=== PATIENT | female | born 1985 | race Caucasian/White ===

== ENCOUNTER 2018-09-20 01:54 | Emergency (ER) | payer OTHER ==
[~2018-09-20] VITALS: Ht 157.5 cm; Wt 54.4 kg
== END 2018-09-20 05:24 | disposition home or self-care (01) ==
LOC: ER 01:54
DX: K52.9 Noninfective gastroenteritis and colitis, unspecified (principal)

== ENCOUNTER 2023-01-30 00:32 | Emergency (ER) | payer OTHER ==
[~2023-01-30] VITALS: Ht 157.5 cm; Wt 65.8 kg
[2023-01-30 02:26] LABS: URINE APPEARANCE Clear; URINE BILIRRUBIN Negative (NEGATIVE); URINE BLOOD Negative; URINE COLOR Yellow; URINE GLUCOSE Negative (NEGATIVE); URINE LEUKOCYTE Negative; URINE NITRATE Negative; URINE PROTEIN Negative (NEGATIVE); URINE UROBILINOGEN 0.2 E.U./dl
[2023-01-30 02:29] LABS: URINE BACTERIA 1010.5 uL (0.0-1933); URINE EPITHELIAL CELLS 12.8 uL (0.0-38.8); URINE RBC 6.3 uL (0.0-20.8); URINE WBC 19.4 uL (0.0-23.2)
[2023-01-30 03:05] LABS: HEMATOCRIT 36.3 % (36.0-45.00); HEMOGLOBIN 12.4 g/dL (12.0-15.00); MEAN CELL VOLUME 82.2 fL (80.00-100.00); PLATELET COUNT 331 K/uL (150-450); RED BLOOD COUNT 4.42 M/uL (4.00-6.00); RED CELL DISTRIBUTION WIDTH 13.9 % (11.5-14.5)
[2023-01-30 03:10] LABS: CALCIUM 8.9 mg/dL (8.5-10.1); GFR 135.69; POTASSIUM 3.63 mEq/L (3.5-5.1)
[2023-01-30 03:18] LABS: CREATININE SERUM 0.51 mg/dL (0.55-1.02)
== END 2023-01-30 06:44 | disposition home or self-care (01) ==
LOC: ER 00:32
DX: K52.89 Other specified noninfective gastroenteritis and colitis (principal); R53.81 Other malaise; Z20.822 Contact with and (suspected) exposure to COVID-19

== ENCOUNTER 2023-03-20 09:03 | Outpatient (CLI) | payer OTHER | END 2023-03-20 10:35 | disposition home or self-care (01) | LOC: NST 09:03 | PROVIDERS: ATTEND Obstetrics & Gynecology Maternal & Fetal Medicine | DX: Z34.83 Encounter for supervision of other normal pregnancy, third trimester (principal) ==

== ENCOUNTER 2023-05-07 10:52 | Outpatient (CLI) | payer OTHER | END 2023-05-07 11:25 | disposition home or self-care (01) | LOC: NST 10:52 | PROVIDERS: ATTEND Obstetrics & Gynecology | DX: Z34.83 Encounter for supervision of other normal pregnancy, third trimester (principal) ==

== ENCOUNTER 2023-05-08 09:19 | Outpatient (CLI) | payer OTHER | END 2023-05-08 10:08 | disposition home or self-care (01) | LOC: NST 09:19 | PROVIDERS: ATTEND Obstetrics & Gynecology | DX: Z34.83 Encounter for supervision of other normal pregnancy, third trimester (principal); Z3A.36 36 weeks gestation of pregnancy ==

== ENCOUNTER 2023-05-10 14:30 | Inpatient (IN) | payer OTHER ==
[~2023-05-10] VITALS: Ht 157.5 cm; Wt 3.6 kg
[2023-05-22] MEDS ORDERED: PRENATAL TABLE1 EAC1 PO (19:14)
[2023-05-22] MEDS ORDERED: RINGERS SOLUTION,LACTATED 1,000 ML IV SCH (19:45)
[2023-05-22 19:54] LABS: HEMATOCRIT 38.3 % (36.0-45.00); HEMOGLOBIN 13.2 g/dL (12.0-15.00); MEAN CORPUSCULAR HEMOGLOBIN 28.6 pg (27.00-32.0); MEAN CORPUSCULAR HGB CONC 34.5 g/dl (32.0-36.0); PLATELET COUNT 258 K/uL (150-450); RED BLOOD COUNT 4.61 M/uL (4.00-6.00); RED CELL DISTRIBUTION WIDTH 14.7 % (11.5-14.5)
[2023-05-22 19:55] LABS: URINE APPEARANCE Clear; URINE BILIRRUBIN Negative (NEGATIVE); URINE BLOOD Negative; URINE COLOR Yellow; URINE GLUCOSE Negative (NEGATIVE); URINE LEUKOCYTE Moderate; URINE NITRATE Negative; URINE PROTEIN Negative (NEGATIVE); URINE UROBILINOGEN 0.2 E.U./dl
[2023-05-22 19:59] LABS: URINE BACTERIA 2479.5 uL (0.0-1933); URINE EPITHELIAL CELLS 29.2 uL (0.0-38.8); URINE WBC 88.2 uL (0.0-23.2)
[2023-05-22 20:14] LABS: INR < 0.93; PARTIAL THROMBOPLASTIN TIME 25.1 SECONDS (22.0-34.0); PROTHROMBIN TIME 9.4 SECONDS (9.0-11.5)
[2023-05-22 20:15] LABS: URINE RBC 1.1 uL (0.0-20.8)
[2023-05-22 20:21] LABS: ALBUMIN 3.3 gm/dL (3.4-5.0); BILIRUBIN TOTAL 0.29 mg/dL (0.3-1.2); CALCIUM 9.7 mg/dL (8.5-10.1); CREATININE SERUM 0.52 mg/dL (0.55-1.02); GFR 132.69; GLOBULINA 3.2 G/DL (2.4-3.5); POTASSIUM 4.21 mEq/L (3.5-5.1); TOTAL PROTEIN 6.5 gm/dL (6.4-8.2)
[2023-05-23] MEDS ORDERED: CEFAZOLIN SODIUM 1,000 MG VIAL IV ONE (09:45)
[2023-05-23] MEDS ORDERED: CITRIC ACID/SODIUM CITRATE 30 ML BLIST.PACK PO ONE (09:45)
[2023-05-23] MEDS ORDERED: OXYTOCIN 10 UNITS/ML VIAL ONE ×3 (12:00→15:17)
[2023-05-23] MEDS ORDERED: ERYTHROMYCIN BASE 1 GM TUBE OP ONE (12:00)
[2023-05-23] MEDS ORDERED: MORPHINE SULFATE 4 MG/ML CARTRIDGE IV PRN (13:45)
[2023-05-23] MEDS ORDERED: RINGERS SOLUTION,LACTATED 1,000 ML IV SCH (13:45)
[2023-05-23] MEDS ORDERED: ONDANSETRON HCL 2 MG/ML VIAL IV PRN (13:45)
[2023-05-23] MEDS ORDERED: OXYTOCIN 1,000 ML IV SCH (13:45)
[2023-05-23] MEDS ORDERED: KETOROLAC TROMETHAMINE 30 MG VIAL ONE (16:02)
[2023-05-23] MEDS ORDERED: GABAPENTIN 300 MG CAPSULE PO SCH (17:00)
[2023-05-23] MEDS ORDERED: KETOROLAC TROMETHAMINE 30 MG VIAL IV SCH (18:00)
[2023-05-24] MEDS ORDERED: SIMETHICONE 125 MG CAPSULE PO SCH (01:00)
[2023-05-24] MEDS ORDERED: ACETAMINOPHEN 500 MG GEL..CAP PO SCH (05:00)
[2023-05-24] MEDS ORDERED: KETOROLAC TROMETHAMINE 10 MG TABLET PO PRN (06:00)
[2023-05-24 07:03] LABS: HEMATOCRIT 25.5 % (36.0-45.00); MEAN CELL VOLUME 83.3 fL (80.00-100.00); MEAN CORPUSCULAR HGB CONC 35.7 g/dl (32.0-36.0); PLATELET COUNT 223 K/uL (150-450); RED BLOOD COUNT 3.07 M/uL (4.00-6.00); RED CELL DISTRIBUTION WIDTH 13.8 % (11.5-14.5)
[2023-05-24 07:22] LABS: MEAN CORPUSCULAR HEMOGLOBIN 29.6 pg (27.00-32.0)
[2023-05-24 07:23] LABS: HEMOGLOBIN 9.1 g/dL (12.0-15.00)
[2023-05-24] MEDS ORDERED: OxyCODONE HCL/APAP UD (PERCOCET) PO SCH (09:00)
[2023-05-24] MEDS ORDERED: DOCUSATE CALCIUM 240 MG CAPSULE PO SCH (09:00)
[2023-05-25] MEDS ORDERED: BISACODYL 10 MG/SUPP.RECT SUPP.RECT RECTAL SCH (16:00)
== END 2023-05-26 13:34 | disposition home or self-care (01) | DRG 788 ==
LOC: LDR 05-22 18:19 → O/R 05-23 13:16 → OB/GYN 05-23 15:07
PROVIDERS: Obstetrics & Gynecology; ADMIT Obstetrics & Gynecology Maternal & Fetal Medicine; ATTEND Obstetrics & Gynecology Maternal & Fetal Medicine
PROC: 4A1HXCZ Monitoring of Products of Conception, Cardiac Rate, External Approach (ICD-10-PCS; 2023-05-22)
PROC: 10D00Z1 Extraction of Products of Conception, Low, Open Approach (ICD-10-PCS; principal; 2023-05-23 11:00)
DX: O14.04 Mild to moderate pre-eclampsia, complicating childbirth (principal); Z3A.38 38 weeks gestation of pregnancy; Z37.0 Single live birth; Z20.822 Contact with and (suspected) exposure to COVID-19

== ENCOUNTER 2023-05-22 17:23 | Outpatient (CLI) | payer OTHER ==
[2023-05-22] MEDS ORDERED: PRENATAL TABLE1 EAC1 PO (19:14)
== END 2023-05-22 18:15 | disposition home or self-care (01) ==
LOC: NST 17:23
PROVIDERS: ATTEND Obstetrics & Gynecology Maternal & Fetal Medicine
DX: Z34.83 Encounter for supervision of other normal pregnancy, third trimester (principal)